=== PATIENT | female | born 1970 | race Caucasian/White ===

== ENCOUNTER 2016-10-13 14:24 | Outpatient (CLI) | payer OTHER | END 2016-10-13 14:25 | disposition home or self-care (01) | DX: F40.01 Agoraphobia with panic disorder (principal); E55.9 Vitamin D deficiency, unspecified ==

== ENCOUNTER 2017-08-08 12:15 | Emergency (ER) | payer OTHER ==
--- NOTE | 2017-08-08 12:55 | XRAY Report ---
EXAM: LEFT KNEE RADIOGRAPHY EXAM DATE: 08/08/2017 12:46 PM. CLINICAL HISTORY: Injury. Valgus injury from fall last night. COMPARISON: None. TECHNIQUE: 5 views. FINDINGS: Bones: Normal. No fractures or bone lesions. Joints: Normal. No effusion. No subluxations. Soft Tissues: Normal. No soft tissue swelling. IMPRESSION: Normal left knee radiography. [facility] Referring Provider Line: [phone] SITE ID: [id number]
--- NOTE | 2017-08-08 12:55 | XRAY Preliminary Report ---
Exam: XR KNEE 4 VIEW LT IMPRESSION: Normal left knee radiography. [facility] SITE ID: [id number]
[2017-08-08] MEDS ORDERED: IBUPROFEN 400 MG TABLET PO STA (13:57)
--- NOTE | 2017-08-08 13:59 | ED Physician Documentation ---
History of Present Illness - Stated complaint Stated Complaint: LEFT LEG INJ - Chief complaint Chief Complaint: Ext Problem - Additonal information Additional information: hx from pt slipped on wet grass last night and bent her knee abnormally very painful medial otherwise well Review of Systems Musculoskeletal: reports: Extremity pain PD PAST MEDICAL HISTORY - Past Medical History Past Medical History: Yes Cardiovascular: None Neuro: None Endocrine/Autoimmune: None GI: None Psych: Anxiety Musculoskeletal: Chronic back pain - Past Surgical History Past Surgical History: No - Present Medications Home Medications: Ambulatory Orders Medication Instructions Recorded Confirmed Ibuprofen [Motrin] 400 mg PO Q6H PRN #30 tablet 08/08/17 - Allergies Allergies/Adverse Reactions: Allergies Allergy/AdvReac Type Severity Reaction Status Date / Time No Known Drug Allergies Allergy Verified 06/15/15 17:11 - Social History Does the pt smoke?: Yes Smoking Status: Current every day smoker Does the pt drink ETOH?: No Does the pt have substance abuse?: No - Immunizations Immunizations are current?: No Immunizations: Other immun current - POLST Patient has POLST: No PD ED PE NORMAL - Vitals Vital signs reviewed: Yes - Extremities Extremities: Other (L knee, mild effusion, no patellar TTP, no quad or pateller tendon TTP, + TTP meidal jt line, not lateral, no ACL MCL LCL laxity but pain with stressing medicla collateal, no cathc op or pain with meniscal testing, no sag, MSV intact) Results - Vitals Vitals: Vital Signs - 24 hr 08/08/17 08/08/17 12:21 14:09 Temperature 36.9 C 36.9 C Heart Rate 125 H 87 Respiratory 20 16 Rate Blood Pressure 140/83 H 133/77 H O2 Saturation 99 100 Oxygen O2 Source Room air - Rads (name of study) knee Radiology: See rad report (neg) PD MEDICAL DECISION MAKING - ED course ED course: HR down Departure - Departure Disposition: 01 Home, Self Care Clinical Impression: Knee MCL sprain Qualifiers: Encounter type: initial encounter Laterality: left Qualified Code(s): S83.412A - Sprain of medial collateral ligament of left knee, initial encounter Condition: Good Instructions: ED Sprain Knee Collateral Ligaments Follow-Up: [facility] [Provider Group] Prescriptions: Ibuprofen [Motrin] 400 mg PO Q6H PRN #30 tablet PRN Reason: Pain Comments: The xray does not show any bone injury I think you have strained but not torn your medial collateral ligament. Hopefully this will heal on its own. But you should follow up with orthopedics for further evaluation and ongoing care - call to schedule You may walk on that leg while wearing the brace. Motrin tylenol and ice as needed for the pain Forms: Activity restrictions Discharge Date/Time: 08/08/17 14:17
[2017-08-08 14:10] VITALS: BP 133/77
== END 2017-08-08 14:17 | disposition home or self-care (01) ==
LOC: ED 12:15
DX: S83.412A Sprain of medial collateral ligament of left knee, initial encounter (principal); W01.0XXA Fall on same level from slipping, tripping and stumbling without subsequent striking against object, initial encounter; F17.200 Nicotine dependence, unspecified, uncomplicated
CPT/HCPCS: 73564; 99283; A9270

== ENCOUNTER 2018-09-12 16:14 | Outpatient (CLI) | payer OTHER ==
--- NOTE | 2018-09-13 11:17 | Mammography Report ---
Reason: ENCOUNTER FOR SCREENING MAMMOGRAM FOR MALIGNANT NE Procedure Date: 09/12/2018 Accession Number: [id number] / [id number] Procedure: HI - Screening Mammo w/Pedro CPT Code: FULL RESULT: EXAM: Screening Mammo w/Pedro DATE: 09/12/2018 5:19 PM CLINICAL HISTORY: Routine screening. Family history of breast cancer in maternal aunt and maternal grandmother uncertain age. Personal history of uterine cancer. TECHNIQUE: Bilateral CC and MLO views were obtained. COMPARISON: 12/29/2015 FINDINGS: The breasts demonstrate heterogeneously dense fibroglandular parenchyma bilaterally. Right breast: On the right cc view only there is a 14 mm partially included asymmetry of the posterior margin of the image seen best on 3-D imaging reference slice 7, 4 cm from the nipple. There are no suspicious calcifications or areas of distortion. Left breast: There are no suspicious masses, calcifications or areas of distortion. IMPRESSION: Right breast: Partially included one view asymmetry seen best on 3-D imaging may represent artifact of dense parenchyma. Incomplete. BI-RADS Category 0. Additional imaging is recommended. Left breast: Negative. BI-RADS Category 1. Recommend annual screening mammography. Note: Given family history, patient may be at increased risk for development of breast cancer. Formal risk assessment with a genetic counselor should be considered; patient may benefit from advanced screening practices and/or risk reduction strategies if there is sufficient assessed risk. BI-RADS CATEGORY 0: Incomplete examination STANDARD QUALIFYING STATEMENTS: 1. This examination was not reviewed with the aid of Computer-Aided Detection (CAD). 2. A negative or benign imaging report should not preclude biopsy if clinically suspicious findings are present. 3. Dense breasts may obscure an underlying neoplasm. 4. This examination was reviewed with the aid of 3D breast imaging (tomosynthesis).
== END 2018-09-12 16:15 | disposition home or self-care (01) ==
LOC: DI 16:14
PROVIDERS: ATTEND Family Medicine
DX: Z12.31 Encounter for screening mammogram for malignant neoplasm of breast (principal); R92.8 Other abnormal and inconclusive findings on diagnostic imaging of breast; Z80.3 Family history of malignant neoplasm of breast
CPT/HCPCS: 77063; 77067

== ENCOUNTER 2018-09-25 10:21 | Outpatient (CLI) | payer OTHER ==
--- NOTE | 2018-09-25 16:17 | Mammography Report ---
Reason: ABN MAMMO - RT SPEC VIEW Procedure Date: 09/25/2018 Accession Number: [id number] / [id number] Procedure: HI - Diag Special Views Dig RT CPT Code: FULL RESULT: EXAM: Diag Special Views Dig RT DATE: 09/25/2018 11:21 AM CLINICAL HISTORY: The patient is recalled from screening for a partially included one view asymmetry of the right breast. TECHNIQUE: Right breast CC, spot CC and MLO views obtained. COMPARISON: 09/12/2018 through 12/29/2015. FINDINGS: The right breast demonstrates heterogeneously dense parenchyma. The previously seen partially included asymmetry on the posterior margin of the right CC view is identified as overlap of normal tissue. There are no suspicious calcifications, areas of distortion or masses. IMPRESSION: Negative examination RECOMMENDATION: Recommend routine annual Screening mammography unless otherwise clinically indicated. BIRADS CATEGORY 1: Negative STANDARD QUALIFYING STATEMENTS: 1. This examination was not reviewed with the aid of Computer-Aided Detection (CAD). 2. A negative or benign imaging report should not delay biopsy if clinically suspicious findings are present. Consider surgical consultation if warrented. More than 5% of cancers are not identified by imaging. 3. Dense breasts may obscure an underlying neoplasm. 4. This examination was reviewed with the aid of 3D imaging (tomography).
== END 2018-09-25 10:22 | disposition home or self-care (01) ==
LOC: DI 10:21
PROVIDERS: ATTEND Family Medicine
DX: R92.8 Other abnormal and inconclusive findings on diagnostic imaging of breast (principal)

== ENCOUNTER 2020-05-20 16:43 | Outpatient (CLI) | payer OTHER ==
--- NOTE | 2020-05-21 17:20 | Ultrasound Report ---
PROCEDURE: Pelvic w/Transvaginal INDICATIONS: ABN VAGINAL BLEEDING TECHNIQUE: Real-time scanning was performed of the pelvic organs, with image documentation. Additional endovagi nal scanning was necessary due to incomplete visualization of the adnexal and endometrial structures by transabdominal scanning. COMPARISON: CT abdomen/pelvis from June 2015.. FINDINGS: Transabdominal scanning: Limited scanning through the kidneys shows no hydronephrosis. No pathologi c free abdominal or pelvic fluid. Endovaginal scanning: Uterus: Uterus is normal in size at 4.6 x 4.9 x 7.2 cm., Anteverted The endometrium measures 4.0 mm in combined thickness. Ovaries: The right ovary measures 1.3 x 1.2 x 2.7 cm and the left measures 1.4 x 2.1 x 2.7 cm. Folli cular cysts are noted IMPRESSION: No sign of endometrial neoplasm or ovarian mass. Etiology of reported vaginal bleeding is not seen. Reviewed by: Joseph Mancia MD on 05/21/2020 5:19 PM PST Approved by: Joseph Mancia MD on 05/21/2020 5:19 PM PST Station ID: [id number]
== END 2020-05-20 16:44 | disposition home or self-care (01) ==
LOC: DI 16:43
PROVIDERS: ATTEND Family Medicine
DX: N93.9 Abnormal uterine and vaginal bleeding, unspecified (principal)
CPT/HCPCS: 76830; 76856

== ENCOUNTER 2020-05-20 16:44 | Outpatient (CLI) | payer OTHER ==
--- NOTE | 2020-05-21 16:01 | Mammography Report ---
BILATERAL DIGITAL SCREENING MAMMOGRAM 3D/2D: 05/20/2020 CLINICAL: Routine screening. Comparison is made to exams dated: 09/25/2018 mammogram, 09/12/2018 mammogram, and 12/29/2015 mammogram - Merged with [facility]. The tissue of both breasts is extremely dense, which lowers the sen sitivity of mammography. No significant masses, calcifications, or other findings are seen in either breast. There has been no significant interval change. IMPRESSION: NEGATIVE There is no mammographic evidence of malignancy. A 1 year screening mammogram is recommended. This exam was interpreted at Station ID: [id number]. NOTE: For mammograms, a report in lay terms will be sent to the patient. Approximately 15% of breast malignancies will not be visualized mammographically. In the management of a palpable breast mass, a negative mammogram must not discourage biopsy of a clinically suspicious lesion. Electronically Signed By: Tacho Meza M.D. aty/penrad:05/21/2020 07:45:40 ACR BI-RADS Category 1: Negative 3341F PARENCHYMAL PATTERN: (VD) - The breast(s) demonstrate(s) extremely dense parenchyma, limiting the sen sitivity of mammography. BI-RADS CATEGORY: (1) - 1 RECOMMENDATION: (ANNUAL) - Recommend routine annual screening mammography. [id number] 1 year screening LATERALITY: (B)
== END 2020-05-20 16:45 | disposition home or self-care (01) ==
LOC: DI 16:44
PROVIDERS: ATTEND Family Medicine
DX: Z12.31 Encounter for screening mammogram for malignant neoplasm of breast (principal)
CPT/HCPCS: 77063; 77067

== ENCOUNTER 2020-05-28 07:58 | Day surgery (SDC) | payer OTHER ==
[2020-05-28] MEDS ORDERED: MIDAZOLAM 2 MG/2 ML VIAL IVP ONE (07:59)
[2020-05-28] MEDS ORDERED: fentaNYL 250 MCG/5 ML VIAL IVP ONE (07:59)
[2020-05-28] MEDS ORDERED: LACTATED RINGERS 1,000 ML IV ONE ×2 (08:01→10:36)
[2020-05-28 08:13] LABS: HCG UR QUAL NEGATIVE
[2020-05-28 11:34] VITALS: BP 106/68
== END 2020-05-28 07:59 | disposition home or self-care (01) ==
LOC: SDS 07:58
PROVIDERS: ATTEND Surgery
DX: Z12.11 Encounter for screening for malignant neoplasm of colon (principal); K57.30 Diverticulosis of large intestine without perforation or abscess without bleeding; Q43.8 Other specified congenital malformations of intestine; K64.8 Other hemorrhoids; Z80.0 Family history of malignant neoplasm of digestive organs; F17.200 Nicotine dependence, unspecified, uncomplicated
CPT/HCPCS: 45378; 81025; J3010; J7120

== ENCOUNTER 2020-07-30 15:38 | Outpatient (CLI) | payer OTHER ==
--- NOTE | 2020-07-30 16:34 | XRAY Report ---
PROCEDURE: Hand 3 View LT INDICATIONS: LEFT HAND PAIN TECHNIQUE: 3 views of the hand(s) acquired. COMPARISON: None FINDINGS: Bones: No fractures or dislocations. Osteoarthritic changes are noted along radial aspect of left wr ist most prominent at first CMC joint. No suspicious bony lesions. Soft tissues: No suspicious soft tissue calcifications. 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 No acute fracture or dislocation. Reviewed by: Juliocesar Beltran MD on 07/30/2020 4:32 PM PST Approved by: Juliocesar Beltran MD on 07/30/2020 4:32 PM PST Station ID: [id number]
== END 2020-07-30 15:39 | disposition home or self-care (01) ==
LOC: DI.S 15:38
PROVIDERS: ATTEND Nurse Practitioner Family
DX: M19.032 Primary osteoarthritis, left wrist (principal); M18.12 Unilateral primary osteoarthritis of first carpometacarpal joint, left hand

== ENCOUNTER 2020-12-10 08:59 | Outpatient (CLI) | payer OTHER ==
--- NOTE | 2020-12-10 09:28 | XRAY Report ---
PROCEDURE: Chest 2 View X-Ray INDICATIONS: Abnormal weight loss TECHNIQUE: 2 view(s) of the chest. COMPARISON: None. FINDINGS: Surgical changes and devices: None. Lungs and pleura: No pleural effusions or pneumothorax. Lungs are clear. Mediastinum: Mediastinal contours are normal. Heart size is normal. Bones and chest wall: No suspicious bony abnormalities. Soft tissues appear unremarkable. IMPRESSION: No acute cardiopulmonary process demonstrated radiographically. Reviewed by: Mark Rai MD on 12/10/2020 9:26 AM PDT Approved by: Mark Rai MD on 12/10/2020 9:26 AM PDT Station ID: [id number]
== END 2020-12-10 09:00 | disposition home or self-care (01) ==
LOC: DI.S 08:59
PROVIDERS: ATTEND Nurse Practitioner Family
DX: R63.4 Abnormal weight loss (principal)

== ENCOUNTER 2020-12-11 07:07 | Outpatient (CLI) | payer OTHER ==
[2020-12-11 14:52] LABS: BASOPHILS # (AUTO) 0.1 10^3/uL (0.0-0.1); BASOPHILS % (AUTO) 0.7 %; EOSINOPHILS % (AUTO) 0.1 %; HCT - HEMATOCRIT 41.2 % (37.0-47.0); HGB - HEMOGLOBIN 13.7 g/dL (12.0-16.0); LYMPHOCYTES # (AUTO) 1.6 10^3/uL (1.5-3.5); LYMPHOCYTES % (AUTO) 23.2 %; MEAN CORPUSCULAR HEMOGLOBIN 31.5 pg (27.0-31.0); MEAN CORPUSCULAR HGB CONC 33.3 g/dL (32.0-36.0); MEAN CORPUSCULAR VOLUME 94.7 fL (81.0-99.0); MEAN PLATELET VOLUME 11.6 fL (7.9-10.8); MONOCYTES # (AUTO) 0.7 10^3/uL (0.0-1.0); MONOCYTES % (AUTO) 10.5 %; NEUTROPHILS # (AUTO) 4.4 10^3/uL (1.5-6.6); NEUTROPHILS % (AUTO) 65.4 %; PLT - PLATELET COUNT 164 10^3/uL (130-450); RED BLOOD COUNT 4.35 10^6/uL (4.20-5.40); RED CELL DISTRIBUTION WIDTH 13.3 % (12.0-15.0); T4 (THYROXINE) 7.07 ug/dL (6.09-12.23); WHITE BLOOD COUNT 6.7 x10^3/uL (4.8-10.8)
[2020-12-11 14:55] LABS: THYROID STIMULATING HORMONE 1.16 uIU/mL (0.34-5.60)
[2020-12-11 14:56] LABS: FREE T3 3.38 pg/mL (2.5-3.9)
[2020-12-11 14:59] LABS: RHEUMATOID FACTOR NEGATIVE (Negative)
[2020-12-11 15:02] LABS: ALBUMIN 4.5 g/dL (3.2-5.5); ALBUMIN/GLOBULIN RATIO 1.7 (1.0-2.2); ALKALINE PHOSPHATASE 48 IU/L (42-121); ALT ALANINE AMINOTRANSFERASE 15 IU/L (10-60); AST ASPARTATE AMINOTRANSFERASE 19 IU/L (10-42); BILIRUBIN,TOTAL 0.6 mg/dL (0.2-1.0); BUN - BLOOD UREA NITROGEN 9 mg/dL (6-20); CALCIUM 8.9 mg/dL (8.5-10.3); CARBON DIOXIDE - CO2 27 mmol/L (21-32); CHLORIDE 104 mmol/L (101-111); CREATININE 0.6 mg/dL (0.4-1.0); GFR - MDRD 106 (>89); GLUCOSE 96 mg/dL (70-100); POTASSIUM 4.3 mmol/L (3.5-5.0); SODIUM 138 mmol/L (135-145); TOTAL PROTEIN 7.2 g/dL (6.7-8.2)
[2020-12-11 15:07] LABS: CRP - C-REACTIVE PROTEIN < 1.0 mg/dL (0-1.0)
[2020-12-12 12:27] LABS: HEPATITIS C ANTIBODY NON-REACTIVE (NON-REACTIVE)
[2020-12-12 14:16] LABS: HIV AG/AB 4TH GEN NON-REACTIVE (NON-REACTIVE)
[2020-12-13 14:16] LABS: TB1-NIL 0.03 IU/mL; TB2-NIL 0.02 IU/mL
[2020-12-13 22:22] LABS: ANA SCREEN NEGATIVE (NEGATIVE)
[2020-12-17 16:06] LABS: CYCLIC CITRULL PEPTIDE CCP IGG <16 UNITS
== END 2020-12-11 07:08 | disposition home or self-care (01) ==
LOC: LAB.S 07:07
PROVIDERS: ATTEND Nurse Practitioner Family
DX: R42 Dizziness and giddiness (principal); R63.4 Abnormal weight loss
CPT/HCPCS: 36415; 80053; 82024; 82533; 84436; 84443; 84481; 85025; 85651; 86038; 86140; 86200; 86430; 86480; 86803; 87389

== ENCOUNTER 2022-06-23 12:42 | Outpatient (CLI) | payer SELFPAY ==
--- NOTE | 2022-06-23 14:10 | XRAY Report ---
PROCEDURE: Chest 2 View X-Ray INDICATIONS: COUGH TECHNIQUE: 2 views of the chest were acquired. COMPARISON: 12/10/2020 FINDINGS: Surgical changes and devices: None. Lungs and pleura: No pleural effusions or pneumothorax. Mild diffuse basilar predominant reticulonod ular pulmonary opacity. Mediastinum: Mediastinal contours are normal. Heart size is normal. Bones and chest wall: No suspicious bony abnormalities. Soft tissues appear unremarkable. IMPRESSION: Mild atypical pneumonia. Reviewed by: Jordy Bailey MD on 06/23/2022 2:08 PM PST Approved by: Jordy Bailey MD on 06/23/2022 2:08 PM PST Station ID: [id number]
== END 2022-06-23 12:43 | disposition home or self-care (01) ==
LOC: DI 12:42
PROVIDERS: ATTEND Nurse Practitioner
DX: J18.9 Pneumonia, unspecified organism (principal)

== ENCOUNTER 2022-08-30 13:01 | Outpatient (CLI) | payer SELFPAY ==
--- NOTE | 2022-08-30 09:48 | XRAY Report ---
PROCEDURE: Finger(s) LT INDICATIONS: SPRAIN OF LEFT THUMB TECHNIQUE: AP hand, 2 views of the thumb acquired. COMPARISON: Left hand radiographs 07/30/20. FINDINGS: Bones: Small bony fragment present at the volar base of the first digit distal phalanx, indeterminate . The trapezium is no longer visualized, presumed surgically absent. Nonspecific deformity of the dis pauline scaphoid also present. Polyarticular degenerative changes present throughout the hand. Soft tissues: No suspicious soft tissue calcifications. IMPRESSION: Small bony fragment present at the volar base of the first digit distal phalanx, indeterminate for an acute fracture fragment or sequela of degenerative change. Correlation with point tenderness and be helpful. If symptoms persist, follow-up radiographs and/or CT or MRI may be helpful for further evalu ation. The trapezium is no longer visualized, presumed surgically absent. Nonspecific deformity of the dista l scaphoid also present, could be posttraumatic or degenerative but other etiologies are not excluded . Reviewed by: Mainor Bartlett MD on 08/30/2022 9:46 AM PST Approved by: Mainor Bartlett MD on 08/30/2022 9:46 AM PST Station ID: [id number]
== END 2022-08-30 13:03 | disposition home or self-care (01) ==
LOC: DI.S 13:01
PROVIDERS: ATTEND Emergency Medicine
DX: S63.682A Other sprain of left thumb, initial encounter (principal)